=== PATIENT | male | born 1950 | race African-American/Black ===

== ENCOUNTER 2016-12-18 09:28 | Emergency (ER) | payer OTHER ==
[2016-12-18 09:35] VITALS: BP 154/98; PULSE 67; TEMP 98; BMI 27.4
--- NOTE | 2016-12-18 10:54 | PDOC ---
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 Denies visual changes, denies drainage or tearing from his eye but states still feels the foreign body sensation at approximately 11: 00 to left eye 12/18/16 10:55 Timing/Duration: unsure Severity: mild, moderate Associated Symptoms: reports: denies symptoms Past History - Travel Traveled outside of the country in the last 30 days: No Close contact w/someone who was outside of country & ill: No - Past Medical History Allergies/Adverse Reactions: Allergies Allergy/AdvReac Type Severity Reaction Status Date / Time No Known Allergies Allergy Verified 12/18/16 09:35 Home Medications: Ambulatory Orders Ciprofloxacin [Cipro -] 500 mg PO Q12H #14 tablet 02/23/14 Metronidazole [Flagyl -] 500 mg PO DAILY #20 tablet 02/23/14 Omeprazole [Prilosec] 0 mg PO DAILY 02/23/14 HTN: Yes Suicide Attempt (Hx): No - Psycho/Social/Smoking Cessation Hx Anxiety: No Suicidal Ideation: No Smoking History: Current every day smoker Number of Cigarettes Smoked Daily: 20 Information on smoking cessation initiated: No Hx Alcohol Use: Yes (rum 3 shots day) Review of Systems - Review of Systems Able to Perform ROS?: Yes Is the patient limited Fijian proficient: Yes Constitutional: Yes: Symptoms Reported, See HPI, Malaise HEENTM: Yes: Symptoms Reported, See HPI, Eye Pain. No: Blurred Vision, Tearing , Recent change in vision, Double Vision Respiratory: No: Symptoms reported All Other Systems: Reviewed and Negative *Physical Exam - Vital Signs Last Vital Signs Temp Pulse Resp BP Pulse Ox 98 F 67 18 154/98 97 12/18/16 09:32 12/18/16 09:32 12/18/16 09:32 12/18/16 09:32 12/18/16 09:32 - Physical Exam General Appearance: Yes: Nourished, Appropriately Dressed, Apparent Distress HEENT: positive: TENZIN (with arcus and, no obvious foreign body, no obvious corneal defect), Normal ENT Inspection, TMs Normal, Pharynx Normal, Nasal Congestion. negative: Pharyngeal Erythema, Rhinorrhea, Sinus Tenderness Neck: positive: Supple, Lymphadenopathy (R), Lymphadenopathy (L). negative: Tender Respiratory/Chest: positive: Lungs Clear, Normal Breath Sounds Gastrointestinal/Abdominal: positive: Soft. negative: Tender Musculoskeletal: positive: Normal Inspection Extremity: positive: Normal Capillary Refill, Normal Inspection Integumentary: positive: Normal Color, Dry, Warm Neurologic: positive: welder fitter helper II-XII NML intact, Fully Oriented, Alert, Normal Mood/ Affect, Normal Response, Motor Strength /5 Medical Decision Making - Medical Decision Making 12/18/16 10:59 Slit lamp exam with fluoresceined and tetracaine does not reveal obvious foreign body, or corneal abrasion. Will irrigate eye and reexamined 12/18/16 11:30 Patient states feels improved with some achiness/soreness to his left eye but no further foreign body sensation. We will provide erythromycin ointment for both lubrication and prophylaxis and have follow-up with ophthalmology 12/18/16 11:30 *DC/Admit/Observation/Transfer Diagnosis at time of Disposition: Foreign body of left eye Qualifiers: Encounter type: initial encounter Qualified Code(s): T15.92XA - Foreign body on external eye, part unspecified, left eye, initial encounter - Discharge Dispostion Disposition: HOME Condition at time of disposition: Stable Admit: No - Referrals Referrals: Gonsalo Shipley MD [Staff Physician] - - Patient Instructions Printed Discharge Instructions: DI for Foreign Body in the Eye Additional Instructions: Rest, avoid rubbing eyes Wash hands, use eye drops as directed, wash hands after use Erythromycin ointment one small ribbon 3 times a day for the next 3-4 days Followup with ophthalmology or private physician as needed - Post Discharge Activity Work/School Note: Back to Work
[2016-12-18] MEDS ORDERED: ERYTHROMYCIN 0.5% OPHTHALMIC OINTMENT 3.5 GM TUBE OS ONE (11:30)
[2016-12-18] MEDS ORDERED: ERYTHROMYCIN 0.5% OPHTHALMIC OINTMENT 3.5 GM TUBE ONE (11:38)
== END 2016-12-18 12:00 | disposition home or self-care (01) ==
LOC: JERFT 09:28
DX: T15.82XA Foreign body in other and multiple parts of external eye, left eye, initial encounter (principal); X58.XXXA Exposure to other specified factors, initial encounter; Y93.H3 Activity, building and construction; Y92.69 Other specified industrial and construction area as the place of occurrence of the external cause; Y99.0 Civilian activity done for income or pay
CPT/HCPCS: 99281-25

== ENCOUNTER 2019-02-25 10:16 | Emergency (ER) | payer OTHER | END 2019-02-25 11:12 | disposition home or self-care (01) | LOC: JERFT 10:16 ==

== ENCOUNTER 2023-07-29 08:56 | Emergency (ER) | payer OTHER ==
[2023-07-29 09:34] VITALS: BP 142/78; PULSE 70; RESP 18; TEMP 97.8; BMI 27.8
== END 2023-07-29 09:40 | disposition home or self-care (01) ==
LOC: JERFT 08:56
DX: Z04.1 Encounter for examination and observation following transport accident (principal); V43.52XA Car driver injured in collision with other type car in traffic accident, initial encounter; Y92.410 Unspecified street and highway as the place of occurrence of the external cause
CPT/HCPCS: 99281-25

== ENCOUNTER 2024-06-26 07:45 | Emergency (ER) | payer OTHER ==
[2024-06-26] MEDS ORDERED: NOREPINEPHRINE BITARTRATE 4 MG/4 ML ML IV ONE (07:59)
[2024-06-26 08:06] VITALS: RESP 20
[2024-06-26 08:06] LABS: HEMATOCRIT 40.6 % (35.4-49); HEMOGLOBIN 13.7 GM/dL (11.7-16.9); MCH 32.3 pg (25.7-33.7); MCHC 33.8 g/dl (32.0-35.9); MEAN CELL VOLUME 95.6 fl (80-96); MEAN PLT VOLUME 9.8 fl (7.5-11.1); PLATELET COUNT 142 10^3/uL (134-434); RBC 4.25 M/mm3 (4.00-5.60); RDW 13.2 % (11.9-15.9); VENOUS BASE EXCESS -10.2 mmol/L (-2-2); VENOUS O2 SATURATION 67.6 % (70-80); WHITE BLOOD COUNT 9.9 K/mm3 (4.0-10.0)
[2024-06-26] MEDS: NOREPINEPHRINE BITARTRATE 4,000 MCG in DEXTROSE 5%-WATER - 496 ML IV SCH (08:12)
[2024-06-26 08:13] LABS: VENOUS PCO2 82.7 mmHg (38-52); VENOUS PH 7.045 (7.310-7.410)
[2024-06-26 08:21] LABS: PROTHROMBIN TIME (PATIENT) 11.3 SEC (9.7-13.0)
[2024-06-26 08:22] LABS: ACTIVATED PTT 42.5 SECONDS (25.2-36.5)
[2024-06-26 08:23] VITALS: BMI 27.3
[2024-06-26 08:23] LABS: POTASSIUM 3.9 mmol/L (3.5-5.1)
[2024-06-26 08:24] LABS: CALCIUM 8.8 mg/dL (8.5-10.1)
[2024-06-26 08:26] LABS: ALBUMIN 3.7 g/dl (3.4-5.0); BLOOD UREA NITROGEN 27.2 mg/dL (7-18); MAGNESIUM 2.4 mg/dL (1.8-2.4)
[2024-06-26 08:28] LABS: CREATININE 1.8 mg/dL (0.55-1.3)
[2024-06-26 08:30] LABS: BILIRUBIN,TOTAL 0.6 mg/dL (0.2-1); TOT PROT 7.2 g/dl (6.4-8.2)
[2024-06-26 08:33] LABS: N-TERMINAL BNP 426.3 pg/ml (5-125)
[2024-06-26] MEDS: LACTATED RINGERS SOLUTION 1000 ML INFUS.BAG IV ONE (08:36)
[2024-06-26 08:44] LABS: LACTIC ACID 5.7 mmol/L (0.4-2.0)
[2024-06-26 08:58] LABS: ANISOCYTOSIS 0; MACROCYTOSIS 0
[2024-06-26 10:15] LABS: ARTERIAL BLD GAS O2 SATURATION 99.5 % (95-98); ARTERIAL BLOOD GAS BASE EXCESS -2.1 mmol/L (-2-2); ARTERIAL BLOOD GAS PO2 248.1 mmHg (80-100)
[2024-06-26] MEDS ORDERED: dilTIAZem HCL 50 MG/10 ML - 10 ML VIAL ONE (11:44)
[2024-06-26] MEDS ORDERED: niCARdipine HCL 25 MG/10 ML AMPUL IVPB ONE (11:48)
[2024-06-26] MEDS: NICARDIPINE 25 MG in DEXTROSE 5%-WATER - 240 ML IVPB SCH (12:05)
[2024-06-26] MEDS ORDERED: levETIRAcetam 500 MG/5 ML INJECTION VIAL IVPB ONE (12:36)
[2024-06-26] MEDS: levETIRAcetam 500 MG/5 ML INJECTION VIAL IVPB ONE (12:39)
[2024-06-26 12:53] VITALS: BP 161/85; PULSE 60
[2024-06-26 13:11] VITALS: TEMP 95
== END 2024-06-26 13:05 | disposition short-term general hospital (02) ==
LOC: JER 07:45
PROC: 5A12012 Performance of Cardiac Output, Single, Manual (ICD-10-PCS; principal; 2024-06-26)
PROC: 05HN33Z Insertion of Infusion Device into Left Internal Jugular Vein, Percutaneous Approach (ICD-10-PCS; 2024-06-26)
PROC: 3E033GC Introduction of Other Therapeutic Substance into Peripheral Vein, Percutaneous Approach (ICD-10-PCS; 2024-06-26)
DX: I46.9 Cardiac arrest, cause unspecified (principal); I10 Essential (primary) hypertension
CPT/HCPCS: 0241U-QW; 36415; 36600; 70450-TC; 71045-TC-FY; 80053; 80307; 82803; 83605; 83735; 83880; 84443; 84484; 85025; 85610; 85730; 93005; 93010; 99291; 99292